=== PATIENT | male | born 2000 | race Native Hawaiian/Other Pacific Islander ===

== ENCOUNTER 2024-04-30 09:20 | Outpatient (AMB) | payer BC, SELFPAY ==
--- NOTE | 2024-04-30 09:32 | MHC.PC.OV ---
Vital Signs 04/30/24 09:41 Height 6 ft Weight 173 lb 6 oz BMI 23.5 BP 130/82 Blood Pressure Location Lt brachial Position Sitting Pulse 67 Pulse Source Pulse Oximeter Temp 97.1 F Temp Source Temporal Artery Scan Pulse Oximetry (%) 97 Oxygen Delivery Method Room Air Intake Visit Reasons: establish care Intake Note: Patient is a new patient here to establish care.Pt has not see a PCP in over 5 years. 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 Has not be seen a PCP in over 5 years. Concern--> reports having intermittent high formations in his skin over the last several months. He attributes this to smoking marijuana. He does report the hives get worse during hot showers. Will supply patient with an antihistamine Vaccine : UTD with the flu, And COVID. considering Tdap PFSH Family History Mother No problems noted. Father No problems noted. Social History (Updated 04/30/24 @ 10:05 by Crescencio Wing PA-C) Housing: Apartment Alcohol intake: current Alcohol type: beer Patient Tobacco Use Status: Never used Tobacco e-Cigarette/Vaping Use: Never Used Substance Use Type: Marijuana service: No Current occupational status: employed Current occupation: [employer] Cognitive needs: No Hearing needs: No Vision needs: No Questionnaire PHQ-9 Over the last 2 weeks, how often have you been bothered by any of the following problems? 1. Little interest or pleasure in doing things: not at all 2. Feeling down, depressed, or hopeless: not at all 3. Trouble falling or staying asleep, or sleeping too much: not at all 4. Feeling tired or having little energy: not at all 5. Poor appetite or overeating: not at all 6. Feeling bad about yourself - or that you are a failure or have let yourself or your family down: not at all 7. Trouble concentrating on things, such as reading the newspaper or watching television: not at all 8. Moving or speaking so slowly that other people could have noticed. Or the opposite - being so fidgety or restless that you have been moving around a lot more than usual: not at all 9. Thoughts that you would be better off or of hurting yourself in some way: not at all Total score: 0 Depression Screening Interpretation: Negative Depression Screening Done: Yes 87905 - PHQ-9 Billing: Yes Source: Developed by Drs. Héctor Goodwin, Lyly Sequeira, Saud Briceño and colleagues, with an educational matty from [employer]. Thrive Questionnaire Date Thrive assessed: 04/23/24 I am a: Patient What is your living situation today?: I have a steady place to live Within the past 12 months, did the food you bought not last and you didn't have the money to get more?: Never true Within the past 12 months, did you worry whether your food would run out before you got money to buy more?: Sometimes True Do you have trouble paying for medicines?: No Do you have trouble getting transportation to medical appointments?: No Do you have trouble paying your heating and electricity bill?: No Do you have trouble taking care of your child, family member or friend?: No Do you have trouble with day-to-day activities such as bathing, preparing meals, shopping, managing finances, etc.?: No Are you currently unemployed and looking for a job?: No Are you interested in more education?: No Please select the resources that you would like help with: Food Currently or been in a relationship where the following occur: No concerns reported THRIVE Score: 1 AUDIT C Alcohol Use Questionnaire (AUDIT-C) 1. How often do you have a drink containing alcohol?: Monthly or less 2. How many drinks containing alcohol do you have on a typical day when you are drinking?: 1 or 2 3. How often do you have six or more drinks on one occasion?: Less than monthly Total Score: 2 SCOOBY-7 AMB Questionnaire SCOOBY-7 Date SCOOBY - 7 assessed: 04/30/24 Feeling nervous, anxious, or on edge: 0 = Not at all Not being able to stop or control worryin = Several days Worrying too much about different things: 1 = Several days Trouble relaxin = Not at all Being so restless that it is hard to sit still: 0 = Not at all Becoming easily annoyed or irritable: 1 = Several days Feeling afraid as if something awful might happen: 0 = Not at all Total SCOOBY-7 score (0-4 normal; 5-9 mild; 10-14 moderate; 15-21 severe): 3 Source: Developed by Drs. Héctor Goodwin, Lyly Sequeira, Saud Briceño and colleagues, with an educational matty from [employer]. SCOOBY-7 Assessment Billing SCOOBY-7 Assessment Tool: SCOOBY-7 Assessment 56768 Review of Systems Const Denies headache(s) Eyes Denies loss of vision ENT Denies vertigo, Denies dizziness, Denies headache(s) and Denies sore throat Card Denies chest pain, Denies leg edema and Denies lightheadedness Resp Denies cough, Denies hemoptysis and Denies wheezing GI Denies abdominal pain, Denies melena, Denies constipation, Denies diarrhea and Denies vomiting Denies dysuria, Denies urinary frequency and Denies urinary urgency Musc Denies arthralgias, Denies joint swelling, Denies numbness and Denies tingling Neuro Denies Abnormal speech present, Denies behavioral changes, Denies vertigo, Denies dizziness, Denies headache(s), Denies loss of vision, Denies memory loss, Denies numbness and Denies tingling Psych Denies anxiety, Denies behavioral changes, Denies depression, Denies memory loss and Denies panic attacks [place]/Lymph Denies easy bleeding and Denies easy bruising Aller/Immun Denies wheezing Physical exam (Primary Care) Vital Signs: Last Vital Signs Temp 97.1 F 04/30/24 09:41 Pulse 67 04/30/24 09:41 BP 130/82 04/30/24 09:41 Pulse Ox 97 04/30/24 09:41 Oxygen Delivery Method Room Air 04/30/24 09:41 BMI result Body Mass Index 23.5 Tobacco/Smoking Status: Tobacco use Status Tobacco use date assessed 04/30/24 04/30/24 09:47 Patient Tobacco Use Status Never used Tobacco 04/30/24 10:05 e-Cigarette/Vaping Use Never Used 04/30/24 10:05 PHQ-9: PHQ-9 Score PHQ-9: Total score 0 04/30/24 10:09 Depression Screening Interpretation: Negative Thrive Assessment: Date of Thrive Assessment Date Thrive assessed 04/23/24 04/30/24 09:33 Currently or been in a relationship where the following occur: No concerns reported Const General: healthy appearing, no acute distress, alert and awake Nutritional Appearance: well nourished Orientation/consciousness: oriented to person, oriented to place and oriented to time HENMT Ears: TM's normal bilaterally General nose exam: Normal nasal mucous membranes and turbinates present Eyes Conjunctivae: conjunctivae normal Sclerae: sclerae normal Pupils: Equal, round and reactive pupils present Neck Neck: Yes no lymphadenopathy and Yes no JVD Thyroid: Thyroid normal Carotids: no bruits Resp Effort & Inspection: normal respiratory effort and not tachypneic Auscultation: no crackles, no rales, no rhonchi and no wheezes Cardio Rate: regular rate Rhythm: regular rhythm Heart sounds: no murmurs and normal S1 and S2 GI Palpation (GI): Soft to palpation, nontender, no hepatomegaly and no splenomegaly Auscultation: normal bowel sounds Skin General skin exam: no rashes or lesions noted and dry skin Neuro General: oriented to person, oriented to place and oriented to time Cranial nerves: Yes Equal, round and reactive pupils present Speech: No Abnormal speech present Gait exam (Neuro): Normal gait present Motor exam (neuro): no tremor noted Extrem Right upper extremity: full ROM Left upper extremity: full ROM Right lower extremity: full ROM; no edema Left lower extremity: full ROM; no edema Psych Mental Status: mental status grossly normal Speech and movement: Normal speech and movement present Affect: normal affect Attitude: cooperative Thought process: Normal thought process present Office Procedures Flu Questionnaire Does the patient have a severe egg allergy?: No Does the patient have severe life threatening allergies?: No Does the patient have a fever or illness today?: No Has the patient ever had Guillain-[place]illo Syndrome?: No Has the patient ever had any past reaction to a flu shot?: No Immunizations Fluarix Triv [id number] (PF) 45 mcg (15 mcg x 3)/0.5 mL IM syringe Performing Provider: Crescencio Wing PA-C [place] [facility] [place] [place] [facility] Administered by: MARY JO Abebe on 04/30/24 11:55 Dose Route Admin Location Dispensed Lot Number Expiration Date NDC Metal Inspector 0.5 mL IM Left Deltoid 0.5 mL [id number] 09/29/24 [id number] [employer] VIS Given Date VIS Provided VIS Publication Date 04/30/24 Single Vaccine 20 Eligibility Eligibility Date Funding Source Not [facility] Eligible 04/30/24 Private Coding Level of Care Code New Pt Level 4 (07644) Diagnoses Allergic dermatitis L23.9 Screening for diabetes mellitus (DM) Z13.1 Additional Codes SCOOBY-7 Assessment Billing - SCOOBY-7 Assessment Tool: SCOOBY-7 Assessment 24129 ([id number]) PHQ-9 - 43427 - PHQ-9 Billing: Yes ([id number]) Assessment & Plan Assessment & Plan (1) Allergic dermatitis: Code(s): L23.9 - Allergic contact dermatitis, unspecified cause Category: Medical Plan: As per HPI patient does report intermittent high formations. He denies any actual upper respiratory allergies though does report some throat congestion at times. Will supply patient with an antihistamine to help with the symptoms. (2) Screening for diabetes mellitus (DM): Code(s): Z13.1 - Encounter for screening for diabetes mellitus Category: Medical Plan: As per HPI Orders: Orders Influenza [id number] Immunization Today Z23 - Encounter for immunization Medications: New Fluarix Triv [id number] (PF) (flu vacc [id number] 6mos up(PF)) 0.5 mL IM ONCE 0.5 mL 0RF NS Z23 - Encounter for immunization loratadine 10 mg PO DAILY 90 tabs 1RF L23.9 - Allergic contact dermatitis, unspecified cause
[2024-04-30 09:41] VITALS: BP 130/82; PULSE 67; TEMP 36.2; O2SAT 97; BMI 23.5
--- OUTSIDE RECORDS SUMMARY | 2024-04-30 10:51 | XMS_ITS | Clinical Summary ---
[facility] Organization [email or web address] Address [address] [place] [address] Care Team Providers Care Plastic Mixer Name Role Phone Xiomara Aparicio HYPERBARIC TECHNOLOGIST Primary Care Provider [phone] Social History Tobacco Use Types Packs/Day Years Used Date Smoking Tobacco: Never Assessed Sex and Gender Information Value Date Recorded Sex Assigned at Not on file Gender Identity Not on file Sexual Orientation Not on file Obstetrics History Plan of Treatment Health Maintenance Due Date Last Done Comments HPV Vaccines (1 - Male 3-dos e series) 2014 DTaP,Tdap,and Td Vaccines (1 - Tdap) 2018 Hepatitis B Vaccines (1 of 3 - 19+ 3-dose series) 2018 COVID-19 Vaccine ( - 2023-2 5 season) 2023 Influenza Vaccine (#1) 2023 HIB Vaccines Aged Out No longer eligi ble based on patient's age to complete this topic Hepatitis A Vaccines Aged Out No long er eligible based on patient's age to complete this topic IPV Vaccines Aged Out No longer eligi ble based on patient's age to complete this topic MMR Vaccines Aged Out No longer eligi ble based on patient's age to complete this topic Meningococcal ACWY Vaccine Aged Out N o longer eligible based on patient's age to complete this topic Pneumococcal Vaccine: Pediat rics (0 to 5 Years) and At-Risk Patients (6 to 64 Years) Aged Out No longer eligible b ased on patient's age to complete this topic RSV Immunization Patients Un magalie 20 months Aged Out No longer eligible b ased on patient's age to complete this topic Varicella Vaccines Aged Out No longer eligible based on patient's age to complete this topic Care Teams Plastic Mixer Relationship Specialty Start Date End Date Xiomara Aparicio HYPERBARIC TECHNOLOGIST [address] [place] [address] [address] [place], [place] [id number] PCP - General Internal Medicine 04/09/19
--- OUTSIDE RECORDS SUMMARY | 2024-04-30 10:51 | XMS_ITS | Continuity of Care Document ---
Author Organization [facility] Address [address] [place] [address] Phone Care Team Providers Care Egg Candler Name Role Phone Admin, Support Unavailable Unavailable Advance Directives Directive Yes / No Effective Date File Name No Information Encounters Encounter Description Practice Location Reason(s) For Visit Diagnoses Date Provider [facility], [address] [place] [address], [address] [place] [address] tel:[phone] PBC / Admin Use No Information 2019 Admin Support. [address] [place] [address], [facility]. tel:[phone] [facility], [address] [place] [address], [address] [place] [address] tel:[phone] [facility] [address] [place] Encounter for screening for other viral diseases 2019 Eleck Dina. [address] [place] [address], [address] [place] [address], . tel:[phone] [facility], [address] [place] [address], [address] [place] [address] tel:[phone] [facility] [address] [place] Cough 2019 Eleck Dina. [address] [place] [address], [address] [place] [address], . tel:[phone] Family History Family Member Type Diagnosis Age At Onset No Information Payers Payer name Insurance type Covered alliance party ID Authoriza tion(s) No Information Social History Type Description Quantity Date Captured Comments Sex Male Smoking Status No Information Sexual Orientation Choose not to disclose Gender Identity Male Chief Complaint And Reason For Visit No Information History Of Present Illness Encounter Date Complaint History Of Prese nt Illness No Information Instructions Date Instruction Additional Infor mation No Information Assessments Type Assessment Date No Information
--- OUTSIDE RECORDS SUMMARY | 2024-04-30 10:51 | XMS_ITS | Clinical Summary ---
Author Organization [facility] Address [address] [place] [address] Care Team Providers Care All Around Presser Name Role Phone Pcp, No Primary Care Provider Unavailabl e Allergies No known active allergies Medications No known medications Active Problems No known active problems Immunizations Name Administration Dates Next Due Covid-19 Adenovirus Vaccine - Salome 12/14/2020 Social History Tobacco Use Types Packs/Day Years Used Date Smoking Tobacco: Never Assessed Sex and Gender Information Value Date Recorded Sex Assigned at Not on file Gender Identity Not on file Sexual Orientation Not on file Last Filed Vital Signs Vital Sign Reading Time Taken Comments Blood Pressure 110/56 07/21/2020 2:27 PM EDT Pulse 55 07/21/2020 2:27 PM EDT Temperature 36.8 ??C (98.3 ??F) 07/21/2020 2:27 PM ED T Respiratory Rate - - Oxygen Saturation 95% 07/21/2020 2:27 PM EDT Inhaled Oxygen Concentration - - Weight 78.5 kg (173 lb) 07/21/2020 2:27 PM EDT Height 180.3 cm (5' 11 ) 07/21/2020 2:27 PM EDT Body Mass Index 24.13 07/21/2020 2:27 PM EDT Plan of Treatment Health Maintenance Due Date Last Done Comments Hepatitis C Virus Screening 1999 HIV Screening 2012 HPV Vaccines (1 - Male 3-dos e series) 2014 DTaP/Tdap/Td Vaccines (1 - Tdap) 2018 Hepatitis B Vaccines (1 of 3 - 19+ 3-dose series) 2018 Influenza Vaccine 11/01/2023 COVID-19 Vaccine (2 - 2023-2 5 season) 2023 12/14/2020 Pneumococcal Vaccine: Pediat ash (0-5 Years) and At-Risk Patients (6 to 49 Years) Aged Out No longer eligible b ased on patient's age to complete this topic Care Teams All Around Presser Relationship Specialty Start Date End Date Pcp, No PCP - General General Medicine 07/19/20
--- OUTSIDE RECORDS SUMMARY | 2024-04-30 10:51 | XMS_ITS | Clinical Summary ---
Author Organization [facility] Address [address] [place] [address] Care Team Providers Care Web Editor Name Role Phone Xiomara Aparicio APRN Primary Care Provider [phone] Allergies No known active allergies Medications Medication Sig Dispensed Refills Start Date End Date Status oxyCODONE-acetaminoph en (PERCOCET) 5-325 MG per tablet Take 1 tablet by mouth every 4 (four) hours as needed for pain. 10 tablet 0 03/27/2019 Active Social History Tobacco Use Types Packs/Day Years Used Date Smoking Tobacco: Never Assessed Sex and Gender Information Value Date Recorded Sex Assigned at Male 03/27/2019 6:19 PM EST Gender Identity Not on file Sexual Orientation Not on file Last Filed Vital Signs Vital Sign Reading Time Taken Comments Blood Pressure 142/82 04/09/2019 11:50 AM EST Pulse 48 04/09/2019 11:50 AM EST Temperature 36.3 ??C (97.3 ??F) 04/09/2019 11:[address] Respiratory Rate 18 03/27/2019 8:57 PM EST Oxygen Saturation 98% 04/09/2019 11:50 AM EST Inhaled Oxygen Concentration - - Weight - - Height - - Body Mass Index - - Plan of Treatment Health Maintenance Due Date Last Done Comments Hepatitis B Vaccines (1 of 3 - 3-dose series) 1999 Hepatitis C Screening 1999 COVID-19 Vaccine (#1) 1999 Depression Screening 2011 Preventative Health Evaluation 2017 DTap / Tdap / Td (1 - Tdap) 2018 Influenza Vaccine (#1) 2023 Pneumococcal Vaccine Aged Out No long er eligible based on patient's age to complete this topic RSV Ped < 20 months Aged Out No longe r eligible based on patient's age to complete this topic Care Teams Web Editor Relationship Specialty Start Date End Date Xiomara Aparicio APRN [address] [place] [id number] PCP - General Internal Medicine 04/09/19
== END 2024-04-30 10:22 | disposition home or self-care (01) ==
PROVIDERS: Visit Provider Physician Assistant
DX: Z23 Encounter for immunization (principal)

== ENCOUNTER → 2024-04-30 09:20 | Outpatient (BNVA) | payer BC, SELFPAY | PROVIDERS: Visit Provider Physician Assistant | DX: L23.9 Allergic contact dermatitis, unspecified cause (principal); Z23 Encounter for immunization | CPT/HCPCS: 90471; 90656; 96127 ==